=== PATIENT | female | born 1995 | race Two or more races ===

== ENCOUNTER 2023-05-13 16:14 | Emergency (ER) | payer OTHER ==
[~2023-05-13] VITALS: Ht 160 cm; Wt 68.5 kg
[2023-05-13] MEDS ORDERED: PRENATABS FA T1 EACH (16:23)
[2023-05-13] MEDS ORDERED: ZOFRAN8 MG (16:23)
[2023-05-13] MEDS ORDERED: STOOL SOFTENER50 MG (16:23)
[2023-05-13] MEDS ORDERED: PEPCID AC20 MG (16:23)
[2023-05-13 17:44] LABS: HEMATOCRIT 35.5 % (36.0-45.00); MEAN CELL VOLUME 83.1 fL (80.00-100.00); MEAN CORPUSCULAR HGB CONC 33.7 g/dl (32.0-36.0); PLATELET COUNT 297 K/uL (150-450); RED BLOOD COUNT 4.28 M/uL (4.00-6.00); RED CELL DISTRIBUTION WIDTH 13.9 % (11.5-14.5)
[2023-05-13 18:33] LABS: CALCIUM 9.6 mg/dL (8.5-10.1); CREATININE SERUM 0.6 mg/dL (0.55-1.02); GFR 117.38; POTASSIUM 3.84 mEq/L (3.5-5.1)
[2023-05-13 20:34] LABS: URINE APPEARANCE Clear; URINE BILIRRUBIN Negative (NEGATIVE); URINE BLOOD Negative; URINE COLOR Yellow; URINE GLUCOSE Negative (NEGATIVE); URINE LEUKOCYTE Negative; URINE NITRATE Negative; URINE PROTEIN Negative (NEGATIVE); URINE UROBILINOGEN 0.2 E.U./dl
[2023-05-13 20:38] LABS: URINE RBC 5.3 uL (0.0-20.8); URINE WBC 7.8 uL (0.0-23.2)
[2023-05-13] MEDS ORDERED: PEPCID AC20 MG PO (21:55)
[2023-05-13] MEDS ORDERED: PHENERGAN25 MG PO (21:55)
== END 2023-05-13 22:00 | disposition home or self-care (01) ==
LOC: ER 16:14
PROVIDERS: General Practice
DX: O21.9 Vomiting of pregnancy, unspecified (principal); Z3A.10 10 weeks gestation of pregnancy